=== PATIENT | male | born 2000 | race Caucasian/White ===

== ENCOUNTER 2022-04-03 11:50 | Emergency (ER) | payer OTHER, BC ==
[2022-04-03] MEDS ORDERED: IBU800 MG PO (14:36)
[2022-04-03] MEDS ORDERED: CEPHALEXIN500 M1 PO (14:36)
== END 2022-04-03 14:52 | disposition home or self-care (01) ==
LOC: ER1 11:50
DX: S81.011A Laceration without foreign body, right knee, initial encounter (principal); S30.810A Abrasion of lower back and pelvis, initial encounter; S70.211A Abrasion, right hip, initial encounter; V29.9XXA Motorcycle rider (driver) (passenger) injured in unspecified traffic accident, initial encounter; Y92.410 Unspecified street and highway as the place of occurrence of the external cause
CPT/HCPCS: 73130; 73564; 99283